=== PATIENT | male | born 1990 | race Caucasian/White ===

== ENCOUNTER 2016-12-15 20:43 | Emergency (ER) | payer OTHER ==
[2016-12-15 21:09] VITALS: BP 129/75
--- NOTE | 2016-12-15 21:26 | ED ---
Lower Extremity - HPI Summary HPI Summary: 26 yr old with right ankle pain. Onset just prior to arrival. Was playing soccer and rolled his right ankle. Pain over lateral ankle. 7/10 worse with weight bearing. - History of Current Complaint Chief Complaint: UCLowerExtremity Stated Complaint: RIGHT ANKLE INJURY Time Seen by Provider: 12/15/16 21:02 Hx Obtained From: Patient Mechanism Of Injury: Twisted Onset of Pain: Immediate Onset/Duration: Minutes Severity Initially: Moderate Severity Currently: Moderate Timing: Constant Location: Is Discrete @ - lateral ankle right Character Of Pain: Throbbing Associated Signs And Symptoms: Positive: Swelling Aggravating Factor(s): Standing Able to Bear Weight: No - Allergies/Home Medications Allergies/Adverse Reactions: Allergies Allergy/AdvReac Type Severity Reaction Status Date / Time Clindamycin Allergy Hives Verified 12/15/16 21:09 [From Cleocin HCl] Doxycycline Allergy Hives Verified 12/15/16 21:09 Home Medications: Home Medications NK [No Home Medications Reported] 12/15/16 [History Confirmed 12/15/16] PMH/Surg Hx/FS Hx/Imm Hx Previously Healthy: Yes - Surgical History Hx Anesthesia Reactions: No Infectious Disease History: No Infectious Disease History: Denies: Traveled Outside the [place] in Last 30 Days - Family History Known Family History: Positive: None - Social History Alcohol Use: Occasionally Substance Use Type: Reports: None Smoking Status (MU): Never Smoked Tobacco Review of Systems Positive: Other - ankle pain All Other Systems Reviewed And Are Negative: Yes Physical Exam Triage Information Reviewed: Yes Vital Signs On Initial Exam: Initial Vitals Temp Pulse Resp BP Pulse Ox 98.8 F 64 14 129/75 100 12/15/16 21:04 12/15/16 21:04 12/15/16 21:04 12/15/16 21:04 12/15/16 21:04 Vital Signs Reviewed: Yes Appearance: Positive: Well-Appearing Head/Face: Positive: Normal Head/Face Inspection Eyes: Positive: EOMI ENT: Positive: Normal ENT inspection Neck: Positive: Other: - FROM Respiratory/Lung Sounds: Positive: Other - normal effort Cardiovascular: Positive: Pulses are Symmetrical in both Upper and Lower Extremities Abdomen Description: Negative: Distended Musculoskeletal: Positive: Other - tender over the right lateral malleolus. No tenderness over the foot or base of fith metatarsal. Some STS over lat malleolus right ankle. Neurological: Positive: Sensory/Motor Intact, Alert, Oriented to Person Place, Time Psychiatric: Positive: Normal - Aiyana Coma Scale Best Eye Response: 4 - Spontaneous Best Motor Response: 6 - Obeys Commands Best Verbal Response: 5 - Oriented Diagnostics - Vital Signs Vital Signs Temp Pulse Resp BP Pulse Ox 12/15/16 21:04 98.8 F 64 14 129/75 100 - Laboratory Lab Statement: Any lab studies that have been ordered have been reviewed, and results considered in the medical decision making process. - Radiology ankle Xray Interpretation: Positive (See Comments) - soft tissue swelling. Radiology Interpretation Completed By: Radiologist Lower Extremity Course/Dx - Course Course Of Treatment: 26 yr old with ankle sprain, crutches, splint. FU ortho - Diagnoses Provider Diagnoses: Ankle sprain Discharge - Discharge Plan Condition: Good Disposition: HOME Patient Education Materials: Ankle Sprain (GEN) Referrals: Wojciech Velasquez DO [Primary Care Provider] - 2 Days
--- NOTE | 2016-12-15 21:32 | RAD ---
INDICATION: Right ankle injury COMPARISON: None TECHNIQUE: AP, lateral, and oblique views were obtained. FINDINGS: There is no acute fracture or dislocation. There is lateral soft tissue swelling. IMPRESSION: LATERAL SOFT TISSUE SWELLING.
== END 2016-12-15 22:13 | disposition home or self-care (01) ==
LOC: EDBD → UCCORT 20:43
DX: S93.401A Sprain of unspecified ligament of right ankle, initial encounter (principal); X50.1XXA Overexertion from prolonged static or awkward postures, initial encounter; Y93.66 Activity, soccer; Z88.1 Allergy status to other antibiotic agents
CPT/HCPCS: 99203; G0463